=== PATIENT | female | born 2000 | race Caucasian/White ===

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

== ENCOUNTER 2021-05-25 19:57 | Emergency (ER) | payer BC ==
[2021-05-25 21:06] LABS: HEMOGLOBIN 12.5 gm/dl (12.3-15.3); RED BLOOD COUNT 4.44 M/UL (4.00-5.10); WHITE BLOOD COUNT 8.3 K/UL (4.5-11.0)
[2021-05-25 21:32] LABS: BUN/CREATININE RATIO 16 (0-10)
== END 2021-05-25 21:40 | disposition left against medical advice (07) ==
LOC: ER1 19:57
PROVIDERS: Physician Assistant
DX: R51.9 Headache, unspecified (principal); M54.2 Cervicalgia
CPT/HCPCS: 80053; 82962; 85025; 85652; 86140; 99283

== ENCOUNTER → 2021-05-27 | Outpatient (CLI) | payer BC | LOC: KOH-I 09:08 | DX: B97.21 SARS-associated coronavirus as the cause of diseases classified elsewhere (principal) | CPT/HCPCS: 71046 ==